=== PATIENT | female | born 1955 | race Caucasian/White ===

== ENCOUNTER → 2019-10-20 11:18 | Outpatient (REF) | payer BC, SELFPAY | LOC: ANHLAB 11:18 | PROVIDERS: PCP Internal Medicine; Visit Provider Nurse Practitioner | DX: R22.9 Localized swelling, mass and lump, unspecified (principal) | CPT/HCPCS: 88304 ==

== ENCOUNTER 2020-04-07 10:55 | Outpatient (CLI) | payer BC, SELFPAY ==
--- NOTE | ~2020-04-07 | XR_ITS ---
EXAMINATION: XR chest 2V EXAM DATE: 04/07/2020 11:19 INDICATION: R06.02 - Shortness of breath. TECHNIQUE: Frontal and lateral projections of the chest obtained and reviewed. There is no prior [place] dy for comparison. FINDINGS: The lungs are clear. There are no pleural effusions. The cardiomediastinal silhouette is within normal limits. There is no pneumothorax suspected. The bones and soft tissues are unremarkab le. There are cholecystectomy clips. There is small sliding gastroesophageal hiatal hernia. IMPRESSION: No acute cardiopulmonary findings. Reviewed, dictated and finalized at location B. 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
== END 2020-04-07 10:56 | disposition home or self-care (01) ==
PROVIDERS: PCP Internal Medicine; Visit Provider Clinical Nurse Specialist
DX: R06.02 Shortness of breath (principal)
CPT/HCPCS: 71046

== ENCOUNTER 2020-05-24 12:09 | Observation (INO) | payer BC, SELFPAY ==
[2020-05-24] VITALS (32 sets, daily range): BP systolic 101–144; BP diastolic 53–80; PULSE 60–79; RESP 12–24; TEMP 36.6–38; O2SAT 88–100; BMI 28.3
--- NOTE | ~2020-05-24 | XR_ITS ---
EXAMINATION: XR chest 1V portable INDICATION: Fever and diarrhea TECHNIQUE: Portable AP chest at 1301 hours COMPARISON: 04/07/2020 FINDINGS: There is mild atelectasis of the lung bases. The lungs are free of focal airspace opacities . There is no pleural effusion or pneumothorax. The cardiomediastinal silhouette is normal. IMPRESSION: 1. No acute cardiopulmonary abnormality. Reviewed, dictated and finalized at location A. 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
--- NOTE | ~2020-05-24 | CT_ITS ---
EXAMINATION: CT abdomen pelvis w con EXAM DATE: 05/24/2020 13:31 INDICATION: Low abdominal pain, diarrhea, symptoms since Saturday. TECHNIQUE: Spiral CT of the abdomen and pelvis was performed following intravenous injection of 100 m L Omnipaque 350. Axial, coronal and sagittal images were reviewed. The dose-length product (DLP) fo r this examination was 462.81 mGy-cm. The exposure was tailored according to patient size (auto mA e xposure control), and iterative reconstruction (ASIR) was used as additional dose reduction technique . Comparison is made to prior examination from 06/20/2019. FINDINGS: Bilateral patchy peripheral predominant groundglass opacities Appearance is typical of ear ly stage COVID 19 pneumonia. Less likely acute possibilities include influenza, pulmonary edema or h emorrhage. Some chronic processes that can have this appearance include cryptogenic organizing pneumo garcia, desquamative interstitial pneumonia, nonspecific interstitial pneumonia, drug toxicity, connecti ve tissue disease. Please clinically correlate and test as appropriate. There is hepatic steatosis without suspicious focal lesion identified. Spleen, adrenal glands, pancre as are unremarkable. There are cholecystectomy clips. Portal and splenic veins are patent. Kidneys enhance symmetrically. There is no hydronephrosis. The uterus is unremarkable. The bladder is u nremarkable. There is no retroperitoneal or pelvic lymphadenopathy. There is mild scattered arteri osclerotic disease. Congenital malrotation/nonrotation spectrum with the colon on the left side of the abdomen and small bowel on the right. The appendix is normal. There is moderate-sized gastroesophageal hiatal hernia. There is colonic fluid, correlate for diarrhea. There is moderate sigmoid predominant colonic divert iculosis. There is no adjacent inflammatory change to suggest diverticulitis. No free intraperitone al gas. The heart is normal in size. There are no pericardial or pleural effusions. There are no osteoblastic or osteolytic lesions identified. IMPRESSION: 1. Patchy bilateral airspace disease suspicious for COVID-19 pneumonia. Clinical correlation. 2. Colonic fluid, correlate for diarrhea. 3. Colonic diverticulosis. 4. Hepatic steatosis. 5. Small to moderate hiatal hernia. 6. Intestinal malrotation. I discussed suspected diarrhea, possible COVID pneumonia with Radha Logan MD at 05/24/2020 13:[address] Reviewed, dictated and finalized at location B. TECHNICIAN IMPRESSION: 1. Patchy bilateral airspace disease suspicious for COVID-19 pneumonia. Clinic al correlation. 2. Colonic fluid, correlate for diarrhea. 3. Colonic diverticulosis. 4. Hepatic steatosis. 5. Small to moderate hiatal hernia. 6. Intestinal malrotation. I discussed suspected diarrhea, possible COVID pneumonia with Radha Logan MD at 05/24/2020 13:40 TEST TECHNICIAN.
--- NOTE | 2020-05-24 12:36 | ED.GENADULT ---
HPI - General Adult General Chief complaint: Abdominal Pain Stated complaint: Vomiting,Diarrhea Time Seen by Provider: 05/24/20 12:19 Source: patient History of Present Illness HPI narrative: Patient is a 64 y/o female complaining of generalized abdominal pain. She states that she has chronic pain due to malrotation, but it's worsen since 4 days ago. She describes her pain as aching and rates it as 9/10. She states that her pain radiates to chest sometimes. She states that Bentyl helps with her pain sometimes. She also has cough, vomiting and diarrhea. Related Data Home Medications Medication Instructions Recorded Confirmed dicyclomine 10 mg capsule 10 mg PO TID cap 05/23/20 05/23/20 Allergies Allergy/AdvReac Type Severity Reaction Status Date / Time Sulfa (Sulfonamide Allergy Unknown Hives Verified 05/24/20 12:28 Antibiotics) Review of Systems Constitutional: Constitutional: Denies chills, Denies fever(s), Denies headache(s) and Denies weakness Eyes: Eyes: Denies blurry vision ENT: Denies headache(s) and Denies neck pain Cardiovascular: Cardiovascular: Reports chest pain and Reports dyspnea Respiratory: Respiratory: Reports cough and Reports dyspnea Gastrointestinal: Gastrointestinal: Reports abdominal pain, Reports diarrhea, Reports nausea and Reports vomiting Genitourinary: Genitourinary: Denies hematuria and Denies dysuria Musculoskeletal: Musculoskeletal: Denies back pain and Denies neck pain Neurologic: Denies headache(s) and Denies weakness PMFSH Past Medical History Medical History (Updated 05/24/20 @ 15:56 by Radha Logan MD) Allergies Anxiety Arthritis Bloating Depression GERD (gastroesophageal reflux disease) Headache, migraine Hiatal hernia Intestinal malrotation Irritable bowel syndrome with both constipation and diarrhea Irritable bowel syndrome with diarrhea Nodule of buttock Stroke Surgical History Surgical History H/O colonoscopy per patient H/O eye surgery x3 History of cholecystectomy History of endoscopy per patient Family History Family History Mother Diabetes mellitus Pacemaker Father Heart attack Ulcer Grandparent Diabetes mellitus Grandparent Parkinson disease Sibling Carcinoma of colon Diabetes mellitus Skin cancer Other Cerebrovascular accident Family history of cardiovascular disease Hypertension Social History Social History Smoking packs per day: 1 Smoking cigarettes per day: 20.0 Smoking status: Former smoker Smoking end date: 06/03/08 Alcohol intake: never Gender identity (if verbalized by the patient): Female Exam Const: General: no acute distress and well developed Orientation/consciousness: oriented to person, oriented to place, oriented to time and patient oriented x3 HENMT: Head: normocephalic Ears: external ears normal General nose exam: Normal external nose present Eyes: General: appearance normal, both eyes and all related structures Conjunctivae: conjunctivae normal Neck: Neck: normal visual inspection and full ROM Chest: Chest palpation & inspection: normal inspection of the chest and no tenderness Resp: Effort & Inspection: normal respiratory effort Auscultation: clear to auscultation bilaterally Cardio: Rate: regular rate Rhythm: regular rhythm GI: GI Palp: No abdominal tenderness and Yes Soft to palpation Skin: General skin exam: normal color and turgor normal Neuro: General: oriented to person, oriented to place, oriented to time and patient oriented x3 Cognition (Neuro): normal cognition Extrem: General: normal to inspection, full ROM and no pedal edema Psych: Appearance: grossly normal Mental Status: mental status grossly normal Affect: normal affect Course Reevaluation(s) Reevaluation #1: Patient's sat dropped
--- NOTE | 2020-05-24 12:39 | ECG_ITS ---
Measurements Intervals [place] Rate: 67 P: 23 MO: 129 QRS: 17 QRSD: 75 T: -7 QT: 386 QTc: 410 Interpretive Statements SINUS RHYTHM RSR' IN V1 OR V2, PROBABLY NORMAL VARIANT LOW QRS VOLTAGE IN PRECORDIAL LEADS BORDERLINE ST-T WAVE ABNORMALITY- ANT/INF LEADS BASELINE ARTIFACT- I, II, AVR, AVL, AVF, V3-V6 BORDERLINE ECG Electronically Signed On 05-24-2020 14:43:21 MEDIATION COMMISSIONER by Lucian Paul D.O.
[2020-05-24] MEDS: ACETAMINOPHEN 325 MG TABLET 650 MG PO (12:52)
[2020-05-24] MEDS: SODIUM CHLORIDE 0.9% IV 1,000 ML 999 ML IV CONT (12:53)
[2020-05-24 12:55] LABS: Basophils Percent Auto 0.4 % (0.2-1.2); Hematocrit 41.9 % (37.0-47.0); Hemoglobin 14.2 g/dL (12.0-15.0); Immature Granulocyte Absolute 0.01 K/mm3 (0.00-0.031); Immature Granulocyte Percent A 0.4 % (0-0.5); Immature Platelet Fraction Pct 5.1 % (0.9-11.2); Lymphocytes Absolute Auto 0.77 K/mm3 (0.9-3.2); Lymphocytes Percent Auto 31.4 % (18.3-44.2); Mean Corpuscular HGB Conc 33.9 g/dl (32-36); Mean Corpuscular Hemoglobin 31.8 pg (26-34); Mean Corpuscular Volume 93.9 fl (80-100); Mean Platelet Volume 11.4 fl (7.4-10.4); Monocytes Absolute Auto 0.3 K/mm3 (0.1-0.6); Monocytes Percent Auto 12.2 % (2.6-8.5); Neutrophils Absolute Auto 1.4 K/mm3 (1.3-6.7); Neutrophils Percent Auto 55.6 % (45.5-73.1); Platelet Count Result 127 k/mm3 (150-375); Red Blood Count 4.46 M/mm3 (4.2-5.4); Red Cell Distribution Width 12.3 % (11.5-14.5); White Blood Count 2.5 K/mm3 (4.5-10.0)
[2020-05-24 12:58] LABS: Add Urine Microscopic? YES; Amorphous Sediment Urine Few; Appearance Urine Cloudy (Clear); Bacteria Urine Trace /hpf; Bilirubin Urine Negative (Negative); Blood Urine 1+ (Negative); Color Urine Amber (Yellow); Glucose Urine UA Negative (Negative); Ketones Urine Negative (Negative); Leukocyte Esterase Ur 3+ LEU/UL (Negative); Mucus Urine Heavy /lpf; Nitrate Urine Negative (Negative); Protein Urine 1+ mg/dL (Negative); RBC Urine 21-50 /hpf (0-2); Specific Grav Ur 1.023 (1.001-1.035); Squamous Epithelial Cell Urine Rare /hpf (Few); Urobilinogen Urine Negative mg/dL (<2.0); WBC Urine >75 /hpf
[2020-05-24 13:08] LABS: Alanine Aminotransferase 65 U/L (4-35); Albumin Level 3.9 g/dL (3.5-5.1); Alkaline Phosphatase 89 U/L (38-126); Anion Gap 9 mmol/L (8-16); Aspartate Amino Transferase 92 U/L (14-36); Bilirubin,Total 0.6 mg/dL (0.2-1.3); Blood Urea Nitrogen 12 mg/dL (7-17); Calcium 8.6 mg/dL (8.4-10.2); Carbon Dioxide 27 mmol/L (22-30); Chloride 101 mmol/L (98-107); Estimated CRCL calculation 62 ml/min; Estimated Glomerular Filt Rate > 60; Glucose 127 mg/dL (65-105); Potassium 3.6 mmol/L (3.4-5.0); Sodium 137 mmol/L (137-145)
[2020-05-24 13:51] LABS: Troponin I < 0.012 ng/mL (0.000-0.034)
[2020-05-24] MEDS: ONDANSETRON INJ 4 MG/2 ML VIAL IV PUSH (13:52)
[2020-05-24 14:05] LABS: Lactic Acid Reflex 0.9 mmol/L (0.7-2.1)
--- NOTE | 2020-05-24 15:16 | PC.NURSE ---
Pt. O2 saturations 88% on RA with good pleth at rest. Pt. placed on 2L o2 via nasal cannula. O2 saturations at 96%. EDP aware.
[2020-05-24 16:18] LABS: Troponin I < 0.012 ng/mL (0.000-0.034)
[2020-05-24 19:17] LABS: Troponin I < 0.012 ng/mL (0.000-0.034)
[2020-05-24] MEDS: fentaNYL CITRATE INJ (*CRX) 100 MCG/2 ML VIAL 25 MCG IV PUSH (22:42)
[2020-05-24 23:30] LABS: SARS-CoV-2 RNA PCR Positive
[2020-05-25] VITALS (10 sets, daily range): BP systolic 114–141; BP diastolic 51–98; PULSE 57–68; RESP 16–20; TEMP 36.1–38.8; O2SAT 93–100
--- NOTE | 2020-05-25 11:41 | PM.IMHP ---
H&P: HPI History of Present Illness Date/Time: 05/25/20 11:41 Chief Complaint: ABDOMINAl PAIN Narrative: Rachel Wolfe is a 64 year old female has a history of reflux, diarrhea, history of malrotated lower intestine, went to see the GI doctor awaiting on a scope. Went to see SHANK TAPER also with abdominal pains was due to have CT scan of abdominal/ pelvis. Pt abdominal pain got worse came into ER for evaluation. Pt has a fever, however, no cough, or wheezy chest. No exposures from covid. Pt states her abdominal pain less sore with IV tylenol, I discussed started steroids and consulting the GI doctor with her. CXR and CT abdo and pelvis reviewed, no need for remdesvir at this time as pt does not complain of any respiratory complaints. Review of Systems Review of Systems: All systems reviewed & are unremarkable except as noted in HPI and below PMFSH Past Medical History Medical History Allergies Anxiety Arthritis Bloating Depression GERD (gastroesophageal reflux disease) Headache, migraine Hiatal hernia Intestinal malrotation Irritable bowel syndrome with both constipation and diarrhea Irritable bowel syndrome with diarrhea Nodule of buttock Stroke Surgical History Surgical History H/O colonoscopy per patient H/O eye surgery x3 History of cholecystectomy History of endoscopy per patient Family History Family History Mother Diabetes mellitus Pacemaker Father Heart attack Ulcer Grandparent Diabetes mellitus Grandparent Parkinson disease Sibling Carcinoma of colon Diabetes mellitus Skin cancer Other Cerebrovascular accident Family history of cardiovascular disease Hypertension Social History Social History Smoking packs per day: 1 Smoking cigarettes per day: 20.0 Smoking status: Never smoker Smoking end date: 06/03/08 Alcohol intake: never Substance use: never Gender identity (if verbalized by the patient): Female Spiritual care concerns: Yes (Matthew Bedoya) Meds Home Medications and Allergies Home Medications Medication Instructions Recorded Confirmed Type pantoprazole 40 mg tablet,delayed 40 mg PO QAM #90 tablet 08/27/20 12/22/20 Rx release dicyclomine 10 mg capsule 10 mg PO TID cap 05/23/20 05/24/20 History sertraline 150 mg PO HS 05/24/20 05/24/20 History triamcinolone acetonide 1 applic TOPICAL BID PRN 05/24/20 05/24/20 History zolpidem 10 mg PO HS 05/24/20 05/24/20 History Allergies Allergy/AdvReac Type Severity Reaction Status Date / Time Sulfa (Sulfonamide Allergy Unknown Hives Verified 05/24/20 12:28 Antibiotics) Vital Signs Vital Signs - 24 hr 05/24/20 12:16 05/24/20 13:22 05/24/20 13:47 Temperature 38.0 C H 37.7 C H Pulse Rate 69 70 Respiratory Rate 16 20 Blood Pressure 144/78 H Pulse Oximetry 95 91 05/24/20 14:00 05/24/20 14:01 05/24/20 14:15 Temperature Pulse Rate 70 71 71 Respiratory Rate 23 H 22 H 14 Blood Pressure 115/70 Pulse Oximetry 92 94 92 05/24/20 14:21 05/24/20 14:30 05/24/20 14:31 Temperature Pulse Rate 73 71 71 Respiratory Rate 13 17 12 Blood Pressure 109/58 L 111/53 L Pulse Oximetry 92 92 91 05/24/20 14:32 05/24/20 14:56 05/24/20 15:00 Temperature Pulse Rate 79 71 67 Respiratory Rate 20 18 12 Blood Pressure 118/60 Pulse Oximetry 91 92 91 05/24/20 15:01 05/24/20 15:15 05/24/20 15:17 Temperature Pulse Rate 67 70 Respiratory Rate 14 24 H Blood Pressure 102/61 Pulse Oximetry 92 88 L 88 L 05/24/20 15:18 05/24/20 15:19 05/24/20 15:30 Temperature Pulse Rate 72 66 72 Respiratory Rate 19 15 16 Blood Pressure 117/80 Pulse Oximetry 94 97 97 05/24/20 15:32 05/24/20 15:45 05/24/20 15:47 Temperature Pulse Rate 73 72 74
[2020-05-25] MEDS: DICYCLOMINE HCL 10 MG CAPSULE PO (16:12)
[2020-05-25] MEDS: ZOLPIDEM TARTRATE (*CRX) 5 MG TABLET 10 MG PO (21:35)
[2020-05-25] MEDS: SERTRALINE HCL 50 MG TABLET 150 MG PO (21:35)
[2020-05-25] MEDS: fentaNYL CITRATE INJ (*CRX) 100 MCG/2 ML VIAL 25 MCG IV PUSH (21:35)
[2020-05-25] MEDS: ENOXAPARIN 40 MG/0.4 ML SYRINGE SUB-Q (21:37)
[2020-05-26] VITALS: BP 130/66; PULSE 82; RESP 16; TEMP 37.4; O2SAT 96
[2020-05-26 04:00] VITALS: BP 113/56; PULSE 87; RESP 18; TEMP 36.6; O2SAT 93
[2020-05-26 08:00] VITALS: BP 108/55; PULSE 76; RESP 18; TEMP 37.7; O2SAT 94
[2020-05-26] MEDS: DEXAMETHASONE SOD PHOS INJ 4 MG/ML VIAL 6 MG IV PUSH (08:43)
[2020-05-26] MEDS: ENOXAPARIN 40 MG/0.4 ML SYRINGE SUB-Q ×2 (08:44→20:18)
[2020-05-26] MEDS: DICYCLOMINE HCL 10 MG CAPSULE PO ×3 (08:44→17:31)
[2020-05-26] MEDS: PANTOPRAZOLE 40 MG TABLET PO (08:44)
[2020-05-26 09:07] LABS: Hematocrit 37.9 % (37.0-47.0); Hemoglobin 12.8 g/dL (12.0-15.0); Immature Granulocyte Absolute 0.02 K/mm3 (0.00-0.031); Immature Granulocyte Percent A 0.9 % (0-0.5); Lymphocytes Absolute Auto 0.65 K/mm3 (0.9-3.2); Mean Corpuscular HGB Conc 33.8 g/dl (32-36); Mean Corpuscular Hemoglobin 31.8 pg (26-34); Mean Platelet Volume 11.5 fl (7.4-10.4); Monocytes Absolute Auto 0.2 K/mm3 (0.1-0.6); Monocytes Percent Auto 9.5 % (2.6-8.5); Neutrophils Absolute Auto 1.4 K/mm3 (1.3-6.7); Neutrophils Percent Auto 61.6 % (45.5-73.1); Platelet Count Result 139 k/mm3 (150-375); Red Blood Count 4.03 M/mm3 (4.2-5.4); Red Cell Distribution Width 12.4 % (11.5-14.5); White Blood Count 2.3 K/mm3 (4.5-10.0)
[2020-05-26 09:29] LABS: Alanine Aminotransferase 46 U/L (4-35); Albumin Level 3.4 g/dL (3.5-5.1); Alkaline Phosphatase 73 U/L (38-126); Anion Gap 8 mmol/L (8-16); Aspartate Amino Transferase 85 U/L (14-36); Bilirubin,Total 0.4 mg/dL (0.2-1.3); Blood Urea Nitrogen 13 mg/dL (7-17); Calcium 8.3 mg/dL (8.4-10.2); Carbon Dioxide 27 mmol/L (22-30); Chloride 104 mmol/L (98-107); Estimated CRCL calculation 71 ml/min; Estimated Glomerular Filt Rate > 60; Glucose 126 mg/dL (65-105); Potassium 3.5 mmol/L (3.4-5.0); Sodium 139 mmol/L (137-145)
[2020-05-26 12:00] VITALS: BP 114/58; PULSE 60; RESP 16; TEMP 36.2; O2SAT 92
--- NOTE | 2020-05-26 13:43 | PM.IMPN ---
Progress Note: A&P Assessment and Plan (1) Abdominal pain, vomiting, and diarrhea: Code(s): R10.9 - Unspecified abdominal pain; R11.10 - Vomiting, unspecified; R19.7 - Diarrhea, unspecified Status: Acute Assessment and Plan: PT started on iv tylenol I will consult GI as pt has history of GERD and interstinal malrotation 05/26/20 13:43 Patient is 64-year-old female with a history of lower intestine malrotation patient had a persistent abdominal pain and diarrhea patient presented emergency department for further evaluation upon arrival patient had a fever of 100.[address] scan the abdomen was done did not show significant abdominal pathology however lower lung lower bases suggestive of COVID pneumonia patient was tested and positive, currently patient states the pain is better with IV Tylenol, she feels more tired and fatigued , had a fever last night again, patient was started on dexamethasone, clinically stable will continue to monitor will have a PT OT evaluate the patient and further recommendation to follow (2) Intestinal malrotation: 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 Assessment and Plan: Seen on CT scan of abdomen and pelvis (3) GERD (gastroesophageal reflux disease): Qualifiers: Esophagitis presence: esophagitis presence not specified Qualified Code(s): K21.9 - Gastro-esophageal reflux disease without esophagitis Code(s): K21.9 - Gastro-esophageal reflux disease without esophagitis Status: Chronic Assessment and Plan: Start PPI (4) UTI (urinary tract infection): Code(s): N39.0 - Urinary tract infection, site not specified Status: Acute Assessment and Plan: Start oral ABX awaiting UC and sensitivites (5) COVID-19: Code(s): U07.1 - COVID-19 Status: Acute Assessment and Plan: Positive test with patchy findings on CT abdomen IV steroids started watch oxygen levels Subjective Date/time seen: 05/26/20 13:43 Patient is 64-year-old female with a history of lower intestine malrotation patient had a persistent abdominal pain and diarrhea patient presented emergency department for further evaluation upon arrival patient had a fever of 100.[address] scan the abdomen was done did not show significant abdominal pathology however lower lung lower bases suggestive of COVID pneumonia patient was tested and positive, currently patient states the pain is better with IV Tylenol, she feels more tired and fatigued , had a fever last night again, patient was started on dexamethasone, clinically stable will continue to monitor will have a PT OT evaluate the patient and further recommendation to follow Urine culture is growing mixed varun, blood culture so far no growth Review of Systems Review of Systems: All systems reviewed & are unremarkable except as noted in HPI and below Exam Narrative: Exam Narrative: Patient is comfortable, NAD HEENT: eyes are clear and none icteric LUNGS: Normal respiratory effort ABD: Not distant Lower extremities: no edema SKIN: nonjaundiced Neuro: grossly intact normal speech. Objective Data Vital Signs Vital Signs: Vital Signs - 24 hr 05/25/20 16:00 05/25/20 20:00 05/26/20 00:00 Temperature 97.7 F 96.9 F L 99.3 F Pulse Rate 62 64 82 Respiratory Rate 20 16 16 Blood Pressure 119/51 L 141/98 H 130/66 Pulse Oximetry 98 96 96 05/26/20 04:00 05/26/20 08:00 05/26/20 12:00 Temperature 98 F 99.8 F H 97.1 F L Pulse Rate 87 76 60 Respiratory Rate 18 18 16 Blood Pressure 113/56 L 108/55 L 114/58 L Pulse Oximetry 93 94 92 Intake/Output Intake/Output: Intake & Output 05/23/20 05/24/20 05/25/20 05/26/20 23:59 23:59 23:59 23:59 Intake Total 1100 1760 225 Output Total 1100 Balance 1100 660 225 Meds/Results Medications: Active Medications Generic Name Dose Route Start Last Admin Trade Name Freq
[2020-05-26 16:00] VITALS: BP 104/55; PULSE 61; RESP 16; TEMP 36.1; O2SAT 95
[2020-05-26 19:59] VITALS: BP 116/46; PULSE 61; RESP 18; TEMP 37.1; O2SAT 95
[2020-05-26] MEDS: SERTRALINE HCL 50 MG TABLET 150 MG PO (20:18)
[2020-05-26] MEDS: ZOLPIDEM TARTRATE (*CRX) 5 MG TABLET 10 MG PO (20:18)
[2020-05-27] VITALS: BP 123/95; PULSE 68; RESP 18; TEMP 36.8; O2SAT 90
[2020-05-27 04:00] VITALS: BP 118/43; PULSE 67; RESP 18; TEMP 36.8; O2SAT 92
[2020-05-27 06:41] LABS: Basophils Percent Auto 0.3 % (0.2-1.2); Hematocrit 38.2 % (37.0-47.0); Hemoglobin 12.6 g/dL (12.0-15.0); Immature Granulocyte Absolute 0.01 K/mm3 (0.00-0.031); Immature Granulocyte Percent A 0.3 % (0-0.5); Lymphocytes Absolute Auto 1.08 K/mm3 (0.9-3.2); Lymphocytes Percent Auto 33.8 % (18.3-44.2); Mean Corpuscular Volume 94.1 fl (80-100); Mean Platelet Volume 11.7 fl (7.4-10.4); Monocytes Absolute Auto 0.3 K/mm3 (0.1-0.6); Monocytes Percent Auto 9.4 % (2.6-8.5); Neutrophils Absolute Auto 1.8 K/mm3 (1.3-6.7); Neutrophils Percent Auto 56.2 % (45.5-73.1); Platelet Count Result 138 k/mm3 (150-375); Red Blood Count 4.06 M/mm3 (4.2-5.4); Red Cell Distribution Width 12.1 % (11.5-14.5); White Blood Count 3.2 K/mm3 (4.5-10.0)
[2020-05-27 06:53] LABS: Alanine Aminotransferase 49 U/L (4-35); Albumin Level 3.3 g/dL (3.5-5.1); Alkaline Phosphatase 69 U/L (38-126); Anion Gap 6 mmol/L (8-16); Aspartate Amino Transferase 100 U/L (14-36); Bilirubin,Total 0.5 mg/dL (0.2-1.3); Blood Urea Nitrogen 14 mg/dL (7-17); Calcium 8.5 mg/dL (8.4-10.2); Carbon Dioxide 27 mmol/L (22-30); Chloride 106 mmol/L (98-107); Estimated CRCL calculation 84 ml/min; Estimated Glomerular Filt Rate > 60; Glucose 102 mg/dL (65-105); Potassium 3.3 mmol/L (3.4-5.0); Sodium 139 mmol/L (137-145)
[2020-05-27 08:00] VITALS: BP 105/51; PULSE 60; RESP 18; TEMP 36.9; O2SAT 93
[2020-05-27] MEDS: DEXAMETHASONE SOD PHOS INJ 4 MG/ML VIAL 6 MG IV PUSH (08:43)
[2020-05-27] MEDS: PANTOPRAZOLE 40 MG TABLET PO (08:43)
[2020-05-27] MEDS: ENOXAPARIN 40 MG/0.4 ML SYRINGE SUB-Q (08:43)
[2020-05-27] MEDS: DICYCLOMINE HCL 10 MG CAPSULE PO ×2 (08:43→12:17)
[2020-05-27] MEDS: POTASSIUM CHLORIDE 20 MEQ PACKET (FOR LIQUID) 40 MEQ PO (10:16)
[2020-05-27 12:00] VITALS: BP 104/63; PULSE 70; RESP 18; TEMP 36.7; O2SAT 91
--- NOTE | 2020-05-27 12:44 | PM.DS ---
DS: Admitting Diagnosis Admitting Diagnosis Admitting Diagnosis: Abdominal pain DS: Discharge Diagnosis Discharge Diagnosis (1) Abdominal pain, vomiting, and diarrhea: Code(s): R10.9 - Unspecified abdominal pain; R11.10 - Vomiting, unspecified; R19.7 - Diarrhea, unspecified Status: Acute Assessment and Plan: PT started on iv tylenol I will consult GI as pt has history of GERD and interstinal malrotation 05/26/20 13:43 Patient is 64-year-old female with a history of lower intestine malrotation patient had a persistent abdominal pain and diarrhea patient presented emergency department for further evaluation upon arrival patient had a fever of 100.[address] scan the abdomen was done did not show significant abdominal pathology however lower lung lower bases suggestive of COVID pneumonia patient was tested and positive, currently patient states the pain is better with IV Tylenol, she feels more tired and fatigued , had a fever last night again, patient was started on dexamethasone, clinically stable will continue to monitor will have a PT OT evaluate the patient and further recommendation to follow (2) Intestinal malrotation: 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 Assessment and Plan: Seen on CT scan of abdomen and pelvis (3) GERD (gastroesophageal reflux disease): Qualifiers: Esophagitis presence: esophagitis presence not specified Qualified Code(s): K21.9 - Gastro-esophageal reflux disease without esophagitis Code(s): K21.9 - Gastro-esophageal reflux disease without esophagitis Status: Chronic Assessment and Plan: Start PPI (4) UTI (urinary tract infection): Code(s): N39.0 - Urinary tract infection, site not specified Status: Acute Assessment and Plan: Start oral ABX awaiting UC and sensitivites (5) COVID-19: Code(s): U07.1 - COVID-19 Status: Acute Assessment and Plan: Positive test with patchy findings on CT abdomen IV steroids started watch oxygen levels DS: Summary Hospital Course Reason for hospitalization: Chief Complaint: ABDOMINAl PAIN Narrative: Rachel Wolfe is a 64 year old female has a history of reflux, diarrhea, history of malrotated lower intestine, went to see the GI doctor awaiting on a scope. 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 Pt abdominal pain got worse came into ER for evaluation. Pt has a fever, however, no cough, or wheezy chest. No exposures from covid. Pt states her abdominal pain less sore with IV tylenol, I discussed started steroids and consulting the GI doctor with her. CXR and CT abdo and pelvis reviewed, no need for remdesvir at this time as pt does not complain of any respiratory complaints. Hospital Course: Patient is 64-year-old female with a history of lower intestine malrotation patient had a persistent abdominal pain and diarrhea patient presented emergency department for further evaluation upon arrival patient had a fever of 100.[address] scan the abdomen was done did not show significant abdominal pathology however lower lung lower bases suggestive of COVID pneumonia patient was tested and positive, currently patient states the pain is better with IV Tylenol, she feels more tired and fatigued , had a fever last night again, patient was started on dexamethasone, clinically stable will continue to monitor will have a PT OT evaluate the patient and further recommendation to follow, patient remains clinically stable will discharge the patient today Status at Discharge Functional status at discharge: independent ambulation Overall status at discharge: patient is back to baseline Time Spent with Patient Time attestation: Total time spent providing and/or coordinating discharge services: Patient was seen and examined at the time of the discharge Condition at discharge is stable
== END 2020-05-27 14:20 | disposition home or self-care (01) ==
LOC: ANHED 15:56 → ANH3MEDSUR 16:48
PROVIDERS: Admitting Provider Family Medicine; Emergency Provider Emergency Medicine; PCP Internal Medicine; Visit Provider Family Medicine
DX: R10.9 Unspecified abdominal pain (principal); R11.2 Nausea with vomiting, unspecified; R19.7 Diarrhea, unspecified; Q43.3 Congenital malformations of intestinal fixation; K21.9 Gastro-esophageal reflux disease without esophagitis; N39.0 Urinary tract infection, site not specified; U07.1 COVID-19; K58.2 Mixed irritable bowel syndrome; K44.9 Diaphragmatic hernia without obstruction or gangrene; F41.8 Other specified anxiety disorders; Z87.891 Personal history of nicotine dependence; J96.01 Acute respiratory failure with hypoxia
CPT/HCPCS: 36415; 71045; 74177; 80053; 81001; 83605; 84484; 85025; 85055; 87040; 87086; 87088; 87635; 93005; 96361; 96365; 96366; 96372; 96374; 96375; 96376; 99291; A9270; C9803; G0378; J0131; J1100; J1650; J2405; J3010; J7030; Q9967; U0003

== ENCOUNTER 2020-11-18 09:10 | Outpatient (CLI) | payer MEDICARE, SELFPAY ==
--- NOTE | ~2020-11-18 | XR_ITS ---
SMALL BOWEL SERIES ONLY INDICATION: Bowel malrotation TECHNIQUE: Serial plain films and fluoroscopic spot films are performed following oral demonstration of thin barium. COMPARISON: CT dated 05/24/2020 FINDINGS: Barium was followed sequentially through the small bowel. The mucosal pattern is unremarka ble. There is malrotation of the bowel with the majority of the small bowel on the right side of the abdomen with the ileocecal valve at the left lower abdomen. No small bowel masses or obstruction of f low of contrast. No evidence for stricture, polyp, diverticula or obstruction of flow of contrast. T ransit time is normal. There are cholecystectomy clips. 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 Reviewed, dictated and finalized at location A. 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
== END 2020-11-18 09:11 | disposition home or self-care (01) ==
LOC: ANHIMG 09:16
PROVIDERS: PCP Internal Medicine; Visit Provider Internal Medicine Gastroenterology
DX: Q43.3 Congenital malformations of intestinal fixation (principal)
CPT/HCPCS: 74250

== ENCOUNTER → 2021-12-11 11:10 | Outpatient (CLI) | payer MEDICARE, SELFPAY ==
--- NOTE | ~2021-12-11 | MM_ITS ---
EXAMINATION: MM screening [facility] BI w jhonatan HISTORY: Screening mammogram TECHNIQUE: Craniocaudal and mediolateral oblique 3-D tomosynthesis images were obtained and synthetic 2-D images were generated. CAD analysis was submitted and interpreted. COMPARISON: None, baseline BREAST PARENCHYMAL COMPOSITION: There are scattered areas of fibroglandular density. FINDINGS: RIGHT BREAST: There is no suspicious mass, calcification, or architectural distortion to suggest josue gnancy. LEFT BREAST: Focal asymmetry is present in the middle third of the slightly upper breast. IMPRESSION: 1. Left breast focal asymmetry 2. Additional mammographic views and possible breast ultrasound are recommended. BI-RADS Category 0: Incomplete: Needs additional imaging evaluation. Reviewed, dictated and finalized at location A. IMPRESSION: 1. Left breast focal asymmetry 2. Additional mammographic views and possible breast ultrasound are recommended . BI-RADS Category 0: Incomplete: Needs additional imaging evaluation.
--- NOTE | ~2021-12-11 | DEXA_ITS ---
Bone Density Report Name: OSMIN MACIAS Age: 66 Sex: Female Ethnicity: White Date of : 1955 Indication: postmenopausal; screening for osteoporosis; height loss; Referring Provider: Stevie, Aminah Study: Bone densitometry was performed. Exam Date: December 11, 2021 Accession number: [id number] Bone Density: Region BMD T-score Z-score Classification AP Spine (L1-L4) 0.778 -2.4 -0.6 Osteopenia Femoral Neck (Left) 0.522 -2.9 -1.4 Osteoporosis Total Hip (Left) 0.658 -2.3 -1.0 Osteopenia Femoral Neck (Right) 0.549 -2.7 -1.1 Osteoporosis Total Hip (Right) 0.647 -2.4 -1.1 Osteopenia Total Hip Mean 0.653 -2.4 -1.1 Osteopenia World Health Organization criteria for BMD impression classify patients as: Normal (T-score at or above -1.0), Osteopenia (T-score between -1.0 and -2.5), or Osteoporosis (T-score at or below -2.5). 10-year Fracture Risk: FRAX not reported because: Some T-score for Spine Total or Hip Total or Femoral Neck at or below -2.5 Clinical Information Provided by Patient: Patient maximum height was 62 Menopause Age: 39 Drinks caffeinated beverages Onset of menses at age 14 Number of children 1 Impression: The patient has osteoporosis, based on the Left Femoral Neck T-score. Discussion: INCREASED RISK OF FRACTURE. BONE DENSITY IS UNDESIRABLY LOW AT ONE OR MORE SKELETAL SITES, CONSISTENT WITH POSTMENOPAUSAL OSTEOPOROSIS. This patient's lowest T-score meets the World Health Organization's (WHO) criteria for osteoporosis at one or more sites (T-score -2.5 or below). In untreated patients, the risk of osteoporotic fracture increases approximately two-fold for each 1.0 SD decrease in T-score. Low bone density is not the only risk factor for fracture; also consider factors such as patient's age, frailty or poor health, risk of falling, risk of injury, previous osteoporotic fracture, family history of osteoporosis, cigarette smoking, low body weight, etc. Not everyone with low bone mineral density has osteoporosis; osteomalacia and other metabolic bone disorders should also be considered. Patients who have osteoporosis should be evaluated for specific diseases and conditions (secondary causes) that may cause or contribute to bone loss. The [place] Association of Clinical Endocrinologists (AACE) and National Osteoporosis Foundation (NOF) recommend pharmacologic intervention for all postmenopausal women whose T-score is in this range. The patient should follow a healthful lifestyle (good nutrition with adequate calcium and vitamin D, and appropriate weight-bearing exercise). Follow-Up: Consider a repeat BMD and Vertebral Fracture Assessment (VFA) exam in 2 years or sooner if medically necessary, to reassess this patient's status. Reported by: [facility] on 12/11/2021 11:48:00 AM.
== END ==
PROVIDERS: PCP Internal Medicine; Visit Provider Internal Medicine
DX: Z12.31 Encounter for screening mammogram for malignant neoplasm of breast (principal); Z78.0 Asymptomatic menopausal state; R92.8 Other abnormal and inconclusive findings on diagnostic imaging of breast; M85.88 Other specified disorders of bone density and structure, other site; M81.0 Age-related osteoporosis without current pathological fracture; M85.852 Other specified disorders of bone density and structure, left thigh; M85.851 Other specified disorders of bone density and structure, right thigh
CPT/HCPCS: 77063; 77067; 77080

== ENCOUNTER → 2021-12-27 10:02 | Outpatient (CLI) | payer MEDICARE, SELFPAY ==
--- NOTE | ~2021-12-27 | MMUS_ITS ---
EXAMINATION: MM diagnostic ignacio LT w jhonatan, US breast LT limited HISTORY: Focal left breast asymmetry reported in middle third of slightly upper breast on 12/11/2021 s creening mammogram TECHNIQUE: Full field ML and spot ML, MLO and CC 3-D tomosynthesis images of the left breast were per formed and synthetic 2-D images were generated. CAD analysis was submitted and interpreted. High reso lution upper inner and upper outer quadrant left breast ultrasound was performed. COMPARISON: 12/11/2021 bilateral screening mammogram FINDINGS: MAMMOGRAPHIC FINDINGS: No suspicious mass, architectural distortion, malignant calcification, skin thickening or retraction is detected. ULTRASOUND: No suspicious mass or shadowing is detected. IMPRESSION: 1. No mammographic evidence of malignancy 2. Routine annual mammographic screening is recommended. BI-RADS Category 2: Benign finding(s). Reviewed, dictated and finalized at location A. IMPRESSION: 1. No mammographic evidence of malignancy 2. Routine annual mammographic screening is recommended. BI-RADS Category 2: Benign finding(s).
== END ==
PROVIDERS: PCP Internal Medicine; Visit Provider Internal Medicine
DX: R92.8 Other abnormal and inconclusive findings on diagnostic imaging of breast (principal)
CPT/HCPCS: 76642; 77061; 77065; G0279

== ENCOUNTER 2022-05-21 15:25 | Outpatient (CLI) | payer MEDICARE, SELFPAY ==
--- NOTE | ~2022-05-21 | MR_ITS ---
MRI of the lumbar spine Clinical History: Back pain, left sciatica Technique: Axial T2-weighted images, and sagittal T1-weighted, T2-weighted, and T2 fat-sat images wer e acquired. Findings: There is no fracture or subluxation of the lumbar spine. Vertebral bodies maintain normal h eight and alignment. No suspicious bone marrow signal abnormality seen. At L1-L2, there is no significant disc bulge or herniation. There is mild facet joint arthropathy. No spinal canal stenosis or neural foraminal narrowing. At L2-L3, there is a left paracentral disc extrusion extending just behind the L2 vertebral body, and minimally compressing the ventral thecal sac. There may be impingement of the descending left-sided L3-L4 nerve root. Neural foramen at this level are preserved. At L3-L4, there is mild left foraminal disc bulge. There is facet joint arthropathy. No spinal canal stenosis or definite neural foraminal narrowing. At L4-L5, there is mild disc bulge with facet arthropathy. There is minimal central canal stenosis. M oderate right neural foraminal narrowing present. Left neural foramen but are preserved. At L5-S1, there is no disc bulge or herniation. There is facet joint arthropathy. There is mild to mo derate right neural foraminal narrowing. Left neural foramen preserved. No spinal canal stenosis. Paravertebral soft tissues are unremarkable. Impression: Small left paracentral disc extrusion at L2-L3, which may impinge the descending left-sided L3-L4 lev el nerve root. Minimal central canal stenosis at L4-L5 with moderate right neural foraminal narrowing. Mild to moderate right neural foraminal narrowing at L5-S1. Reviewed, dictated and finalized at location M. R DRIVEN BRUSH MAKER Impression: Small left paracentral disc extrusion at L2-L3, which may impinge the descendin g left-sided L3-L4 level nerve root. Minimal central canal stenosis at L4-L5 with moderate right neural foraminal na rrowing. Mild to moderate right neural foraminal narrowing at L5-S1.
== END 2022-05-21 15:26 | disposition home or self-care (01) ==
PROVIDERS: PCP Internal Medicine; Visit Provider Internal Medicine
DX: M54.42 Lumbago with sciatica, left side (principal); M50.20 Other cervical disc displacement, unspecified cervical region
CPT/HCPCS: 72148

== ENCOUNTER 2024-01-06 15:56 | Emergency (ER) | payer MEDICARE, SELFPAY ==
--- NOTE | ~2024-01-06 | XR_ITS ---
EXAM: XR sternum min 2V DATE: 01/06/2024 17:09 HISTORY: pop 3 days ago. persistent pain MID STERNAL . COMPARISON: None available. FINDINGS: Decreased mineralization. Transverse fracture of the sternal body with 3 mm anterior displ acement of the distal fragment. No lytic or blastic lesion. Sternoclavicular joints appear grossly no rmal. No erosion or periosteal change. Degenerative change in the thoracic spine. IMPRESSION: Osteopenia. Minimally displaced transverse fracture of the sternal body. Reviewed, dictated and finalized at location K.
[2024-01-06 16:12] VITALS: BP 134/76; PULSE 62; RESP 16; O2SAT 98
[2024-01-06 16:31] VITALS: TEMP 36.7
--- NOTE | 2024-01-06 16:54 | ED.GENADULT ---
HPI - General Adult General Chief complaint: Unspecified Stated complaint: pain,pop on breast bone Time Seen by Provider: 01/06/24 16:41 Source: patient and RN notes reviewed Mode of arrival: ambulatory Limitations: no limitations History of Present Illness HPI narrative: Patient presents today complaining of pain to the sternum. Three days ago she was trying to scoot herself into a friend's pool with her arms and felt a pop in her sternum. She has been having pain to the sternum ever since. This pain increases with movement and coughing. Currently rates her pain 8/10 and has tried no [id number]-rfg-[id number] treatment prior to arrival. Related Data Home Medications Medication Instructions Recorded Confirmed brimonidine 0.2 % eye drops 1 drp DIRECTED 01/06/24 01/06/24 latanoprost 0.005 % eye drops 1 drp DIRECTED 01/06/24 01/06/24 timolol maleate 0.5 % eye drops 1 drp DIRECTED 01/06/24 01/06/24 Allergies Allergy/AdvReac Type Severity Reaction Status Date / Time Sulfa (Sulfonamide Allergy Unknown Hives Verified 11/23/20 15:40 Antibiotics) Review of Systems Review of Systems: CONSTITUTIONAL: Denies body aches, fever, chills, or sweats. EYES: Denies visual changes, redness, or discharge. ENT: Denies rhinorrhea, congestion, sore throat, or otalgia. CARDIOVASCULAR: Denies chest pain, palpitations, or edema. RESPIRATORY: Denies cough or dyspnea. GASTROINTESTINAL: Denies abdominal pain, nausea, vomiting, or diarrhea. GENITOURINARY: Denies dysuria or hematuria. SKIN: Denies rash, itching, or wounds. MUSCULOSKELETAL: Denies back pain, joint pain, or myalgia.+ sternal pain NEUROLOGIC: Denies headache, numbness, tingling, or weakness. PSYCH: Denies depression or anxiety. [facility] Past Medical History Medical History (Updated 01/06/24 @ 17:30 by Noemi Underwood, LANE ATTENDANT, ) Allergies Anxiety Arthritis Bloating Depression GERD (gastroesophageal reflux disease) Headache, migraine Hiatal hernia Intestinal malrotation Irritable bowel syndrome with both constipation and diarrhea Irritable bowel syndrome with diarrhea Nodule of buttock Stroke Surgical History Surgical History H/O colonoscopy per patient H/O eye surgery x3 History of cholecystectomy History of endoscopy per patient Family History Family History Mother Diabetes mellitus Pacemaker Father Heart attack Ulcer Grandparent Diabetes mellitus Grandparent Parkinson disease Sibling Carcinoma of colon Diabetes mellitus Skin cancer Other Cerebrovascular accident Family history of cardiovascular disease Hypertension Social History Social History Smoking packs per day: 1 Smoking cigarettes per day: 20.0 Smoking status: Never smoker Smoking end date: 06/03/08 Alcohol intake: never Substance use: never Gender identity (if verbalized by the patient): Female Spiritual care concerns: Yes (Matthew Bedoya) Comments At time of signature, I have reviewed and agree with nursing past medical, surgical, social and family history unless otherwise noted. Please see nursing chart for further information. There is no relevant family history pertinent to the presenting complaint Exam Narrative: GENERAL: Well-appearing, well-nourished, and in no acute distress. HEAD: Normocephalic, atraumatic. EYES: EOMI. No redness or drainage. Conjunctivae normal. ENT: Mucous membranes pink and moist. NECK: Normal AROM. CHEST: No respiratory distress. Clear to auscultation. HEART: Regular rate and rhythm. No murmur appreciated. Normal peripheral pulses. MUSCULOSKELETAL: Tenderness to the sternum. No edema, crepitus, or stepoff noted. EXTREMITIES: Normal range of motion. No edema. SKIN: Warm, dry, no rash. Capillary refill normal. Normal skin
== END 2024-01-06 17:38 | disposition home or self-care (01) ==
PROVIDERS: Emergency Provider Nurse Practitioner; PCP Internal Medicine
DX: S22.22XA Fracture of body of sternum, initial encounter for closed fracture (principal); X50.9XXA Other and unspecified overexertion or strenuous movements or postures, initial encounter; M19.90 Unspecified osteoarthritis, unspecified site; K21.9 Gastro-esophageal reflux disease without esophagitis; Z86.73 Personal history of transient ischemic attack (TIA), and cerebral infarction without residual deficits
CPT/HCPCS: 71120; 99213; G0463

== ENCOUNTER 2024-09-17 10:12 | Outpatient (CLI) | payer MEDICARE, SELFPAY ==
--- NOTE | ~2024-09-17 | MM_ITS ---
EXAMINATION: MM screening ignacio BI w jhonatan HISTORY: Screening TECHNIQUE: Craniocaudal and mediolateral oblique 3-D tomosynthesis images were obtained and synthetic 2-D images were generated. CAD analysis was submitted and interpreted. COMPARISON: 12/11/2021 BREAST PARENCHYMAL COMPOSITION: Not dense: There are scattered areas of fibroglandular density. FINDINGS: There is no evidence of suspicious mass, calcification, or architectural distortion to sugg est malignancy in either breast. There has been no suspicious interval change. IMPRESSION: 1. No mammographic evidence of malignancy. 2. Recommend routine screening mammography in one year. BI-RADS Category 1: Negative Reviewed, dictated and finalized at location B.
--- OUTSIDE RECORDS SUMMARY | 2024-09-17 10:51 | XMS_ITS | Encounter Summary ---
Author Organization [facility] Address [address] [place] [address] Care Team Providers Care Domain Architect Name Role Phone Aminah Hubbard MD Primary Care Provider Ramon Miller MD Unavailable [phone] Je Sellers MD Unavailable Elma Vila MD Unavailable [phone] Encounter Details Date Type Department Care Team (Latest Contact Info) Description 11/13/2022 Syndero Message Enc [facility] Multispecialty Care - [facility] [address] [facility], [address] [place] [address] Jocelyn Chawla APRN [address] [facility] [address] [place] [address] 6 Months to appointment Social History Tobacco Use Types Packs/Day Years Used Date Smoking Tobacco: Former Cigarettes 1 30 1 977 - 2007 Smokeless Tobacco: Never Comments:counseled by Dr Frannie klein Alcohol Use Standard Drinks/Week Comments Yes 0 (1 standard drink = 0.6 oz pur e alcohol) 2-3 per year PHQ-2 Answer Date Recorded Patient Health Questionnaire-2 Score 1 10/12/2022 Comments No Sex and Gender Information Value Date Recorded Sex Assigned at Not on file Legal Sex Female 3:06 PM CDT Gender Identity Not on file Sexual Orientation Not on file COVID-19 Exposure Response Date Recorded In the last 10 days, have yo u been in contact with someone who was confirmed or suspected to have Coronavirus/COVID-19? No / Unsure 11/13/2022 10:49 AM CDT documented as of this encounter Plan of Treatment Upcoming Encounters Date Type Department Care Team (Late st Contact Info) Description 10/09/2024 10:00 AM CDT [facility] [address] [place] [address] Aminah Hubbard MD [address] [place] [address] 04/21/2025 10:30 AM SAFETY COORDINATOR [facility] [address] [place] [address] Aminah Hubbard MD [address] [place] [address] documented as of this encounter Visit Diagnoses Not on filedocumented in this encounter Additional Health Concerns Assessment Noted Time PHQ-9 Depression Total Score: 4 11/23/19 22 1:25 PM CDT documented as of this encounter Care Teams Domain Architect Relationship Specialty Start Date End Date Aminah Hubbard MD [address] [place] [address] PCP - General INTERNAL MEDICINE 08/28/21 Ramon Miller MD [address] [facility] [address] [place] [address] [place] [address] GASTROENTEROLOGY 11/22/21 02/12/23 Je Sellers MD [address] [facility] [address] [place] [address] Referring Physician OPHTHALMOLOGY 11/22/21 Elma Vila MD [facility] [address] [facility] [place] [address] Consulting Physician ANESTHESIOLOGY PAIN MEDICINE 04/08/24 04/08/24 documented as of this encounter
--- OUTSIDE RECORDS SUMMARY | 2024-09-17 10:51 | XMS_ITS | Encounter Summary ---
Author Organization [facility] - [facility] Address [address] [place] [address] Care Team Providers Care Vice President Of Business Development Name Role Phone Aminah Hubbard MD Primary Care Provider [phone] Je Sellers MD Unavailable Elma Vila MD Unavailable Encounter Details Date Type Department Care Team (Late st Contact Info) Description 02/15/2023 coUrbanize Message Enc [facility] Medical [facility] Multispecialty Care - [address] [place] [address] dotSyntax, [facility] Provider lab results Social History Tobacco Use Types Packs/Day Years Used Date Smoking Tobacco: Former Cigarettes 1 30 1 977 - 2006 Smokeless Tobacco: Never Comments:counseled by Dr Frannie klein Alcohol Use Standard Drinks/Week Comments Yes 0 (1 standard drink = 0.6 oz pur e alcohol) 2-3 per year AUDIT-C Answer Date Recorded Q1: How often do you have a drink containing alcohol? Never 02/13/2023 Q2: How many drinks containi ng alcohol do you have on a typical day when you are drinking? Patient does not drink Q3: How often do you have si x or more drinks on one occasion? Never 02/13/2023 PHQ-2 Answer Date Recorded Patient Health Questionnaire-2 Score 2 02/13/2023 Comments No Sex and Gender Information Value Date Recorded Sex Assigned at Not on file Legal Sex Female 3:06 PM CDT Gender Identity Not on file Sexual Orientation Not on file documented as of this encounter Plan of Treatment Upcoming Encounters Date Type Department Care Team (Late st Contact Info) Description 10/09/2024 10:00 AM CDT Office Visit [facility] Multispecialty Care - [address] [place] [address] [place] [address] [place] [address] 04/21/2025 10:30 AM DIGITAL SERVICE ENGINEER [facility] [address] [place] [address] Aminah Hubbard MD [facility] [address] documented as of this encounter Visit Diagnoses Not on filedocumented in this encounter Additional Health Concerns Assessment Noted Time PHQ-9 Depression Total Score: 4 11/23/19 22 1:25 PM CDT documented as of this encounter Care Teams Vice President Of Business Development Relationship Specialty Start Date End Date Aminah Hubbard MD [address] [place] [address] PCP - General INTERNAL MEDICINE 08/28/21 Je Sellers MD [address] [place] [address] [address] Referring Physician OPHTHALMOLOGY 11/22/21 Elma Vila MD [facility] [address] [place] [address] Consulting Physician ANESTHESIOLOGY PAIN MEDICINE 04/08/24 04/08/24 documented as of this encounter
--- OUTSIDE RECORDS SUMMARY | 2024-09-17 10:51 | XMS_ITS | Encounter Summary ---
Author Organization [facility] Address [address] [place] [address] Care Team Providers Care Wood Heel Flap Trimmer Name Role Phone Aminah Hubbard MD Primary Care Provider [phone] Je Sellers MD Unavailable Elma Vila MD Unavailable [phone] Encounter Details Date Type Department Care Team (Late st Contact Info) Description 04/03/2023 Pre-Procedure Call [facility] [place] [address] [phone] Emely Li, DIANA Social History Tobacco Use Types Packs/Day Years Used Date Smoking Tobacco: Former Cigarettes 1 30 977 - 2006 Smokeless Tobacco: Never Comments:counseled [...] Description 10/09/2024 10:00 AM CDT Office Visit [facility] - [address] [place] [address] [place] [address] [place] [address] 04/21/2025 10:30 AM TUBE CLEANER [facility] - [address] [place] [address] Aminah Hubbard MD [address] [place] [address] documented as of this encounter Visit Diagnoses Not on filedocumented in this encounter Additional Health Concerns Assessment Noted Time PHQ-9 Depression Total Score: 4 11/23/19 22 1:25 PM CDT documented as of this encounter Care Teams Wood Heel Flap Trimmer Relationship Specialty Start Date End Date Aminah Hubbard MD [address] [place] [address] PCP - General INTERNAL MEDICINE 08/28/21 Je Sellers MD [address] [place] [address] [address] [place] [address] Referring Physician OPHTHALMOLOGY 11/22/[address] [facility] [address] [place] [address] Consulting Physician ANESTHESIOLOGY PAIN MEDICINE 04/08/24 04/08/24 documented as of this encounter
--- OUTSIDE RECORDS SUMMARY | 2024-09-17 10:52 | XMS_ITS | Continuity of Care Document ---
Author Organization [facility] Address [address] [place] [address] [place] [address] Phone Care Team Providers Care Rotary Saw Operator Name Role Phone Paige OD, Ramon Unavailable Unavailable Procedures Procedure Date Office/outpatient Visit, Est Eye Exam & Treatment Refraction Advance Directives Directive Yes / No Effective Date File Name No Information Encounters Encounter Description Practice Location Reason(s) For Visit Diagnoses Date Provider Providers Copied on Encounter Office/outpat ient Visit, Est [facility], [address] [place] [address] [address], [place], [place], [id number], tel:[phone] [facility] No Information 6-200 8 Paige OD Ramon. [address], [place], [place], [facility], [place]. tel:[phone] [facility], [address] [place] [address] [address], [place], [place], [id number], tel:[phone] [facility] No Information 8-200 8 Paige OD Ramon. [address] , [address], [place], [address], [place]. tel:[phone] Family History Family Member Type Diagnosis Age At Onset No Information Payers Payer name Insurance type Covered constitution party ID Authoriza tion(s) No Information Social History Type Description Quantity Date Captured Comments Sex Female Smoking Status No Information Chief Complaint And Reason For Visit No Information Reason For Referral Reason For Referral No Information History Of Present Illness Encounter Date Complaint History Of Prese nt Illness No Information Functional Status Date Functional Assessmen t No Information Instructions Date Instruction Additional Infor mation No Information Assessments Type Assessment Date No Information Patient Care Teams Name Effective Dates (start - stop) Status Members No Information
--- OUTSIDE RECORDS SUMMARY | 2024-09-17 10:52 | XMS_ITS | Encounter Summary ---
Author Organization [facility] - [facility] Address [facility] [place] [address] Care Team Providers Care Hired Hand Name Role Phone Aminah Hubbard MD Primary Care Provider [phone] Je Sellers MD Unavailable Encounter Details Date Type Department Care Team (Latest Contact Info) Description 04/24/2024 Conversion Logic Message Enc [facility] Medical Group Multispecialty Care - [place] [address] [address] [place] [address] [place] [address] [place] [address] [address] [place] [address] Can't reach your office. Social History Tobacco Use Types Packs/Day Years Used Date Smoking Tobacco: Former Cigarettes 1 30 1 977 - 2007 Passive Smoke Exposure: Never Smokeless Tobacco: Never Comments:counseled by Dr Frannie klein Alcohol Use Standard Drinks/Week Comments Yes 0 (1 standard drink = 0.6 oz pur e alcohol) 2-3 per year AUDIT-C Answer Date Recorded Q1: How often do you have a drink containing alc ohol? Monthly or less 04/06/2024 Q2: How many drinks containi ng alcohol do you have on a typical day when you are drinking? 1 or 2 04/06/2024 Q3: How often do you have si x or more drinks on one occasion? Never 04/06/2024 PHQ-2 Answer Date Recorded Patient Health Questionnaire-2 Score 2 04/08/2024 Comments No Sex and Gender Information Value Date Recorded Sex Assigned at Not on file Legal Sex Female 3:06 PM CDT Gender Identity Not on file Sexual Orientation Not on file documented as of this encounter Plan of Treatment Upcoming Encounters Date Type Department Care Team (Late st Contact Info) Description 10/09/2024 10:00 AM CDT Office Visit [address] [place] [address] Aminah Hubbard MD [address] [place] [address] 04/21/2025 10:30 AM SHOP TAILOR Office Visit [address] [address] Aminah Hubbard MD [address] [place] [address] documented as of this encounter Visit Diagnoses Not on filedocumented in this encounter Additional Health Concerns Assessment Noted Time PHQ-9 Depression Total Score: 5 04/08/20 24 11:54 AM SHOP TAILOR documented as of this encounter Care Teams Hired Hand Relationship Specialty Start Date End Date Aminah Hubbard MD [address] [place] [address] PCP - General INTERNAL MEDICINE 08/28/21 Je Sellers MD [address] [place] [address] [address] [place] [address] Referring Physician OPHTHALMOLOGY 11/22/21 documented as of this encounter
--- OUTSIDE RECORDS SUMMARY | 2024-09-17 10:52 | XMS_ITS | Encounter Summary ---
Author Organization [facility] - [facility] Address [address] [place] [address] Care Team Providers Care Briquette Machine Operator Name Role Phone Aminah Hubbard MD Primary Care Provider [phone] Ramon Miller MD Unavailable [phone] Je Sellers MD Unavailable Elma Vila MD Unavailable [phone] Encounter Details Date Type Department Care Team (Late st Contact Info) Description 04/16/2022 Engine Ecology Message Enc [facility] - [address] [place] [address] Pa[place], [facility] Provider MRI result Social History Tobacco Use Types Packs/Day Years Used Date Smoking Tobacco: Former Cigarettes 1 30 1 977 - 2007 Smokeless Tobacco: Never Comments:counseled by Dr Frannie klein Alcohol Use Standard Drinks/Week Comments Yes 0 (1 standard drink = 0.6 oz pur e alcohol) 2-3 per year PHQ-2 Answer Date Recorded PHQ-2 Score - If the patient scores above 3, please move on to questions 3-9 1 02/12/2022 Comments No Sex and Gender Information Value Date Recorded Sex Assigned at Not on file Legal Sex Female 3:06 PM CDT Gender Identity Not on file Sexual Orientation Not on file COVID-19 Exposure Response Date Recorded In the last 10 days, have yo u been in contact with someone who was confirmed or suspected to have Coronavirus/COVID-19? Unable to assess 04/13/2022 10: 50 AM RADIOGRAPHER documented as of this encounter Plan of Treatment Upcoming Encounters Date Type Department Care Team (Late st Contact Info) Description 10/09/2024 10:00 AM CDT Office Visit [facility] - [address] [place] [address] Aminah Hubbard MD [address] [address] 04/21/2025 10:30 AM RADIOGRAPHER [facility] [address] [place] [address] Aminah Hubbard MD [address] [place] [address] documented as of this encounter Visit Diagnoses Not on filedocumented in this encounter Additional Health Concerns Assessment Noted Time PHQ-9 Depression Total Score: 4 11/23/19 22 1:25 PM CDT documented as of this encounter Care Teams Briquette Machine Operator Relationship Specialty Start Date End Date Aminah Hubbard MD [address] [place] [address] PCP - General INTERNAL MEDICINE 08/28/21 Ramon Miller MD [address] [facility] [address] [place] [address] GASTROENTEROLOGY 11/22/21 02/12/23 Je Sellers MD [address] [facility] [address] [place] [address] Referring Physician OPHTHALMOLOGY 11/22/21 Elma Vila MD [facility] [address] [place] [address] Consulting Physician ANESTHESIOLOGY PAIN MEDICINE 04/08/24 04/08/24 documented as of this encounter
--- OUTSIDE RECORDS SUMMARY | 2024-09-17 10:52 | XMS_ITS | Encounter Summary ---
Author Organization [facility] - [facility] Address [address] [place] [address] Care Team Providers Care Life Advisor Name Role Phone Aminah Hubbard MD Primary Care Provider [phone] Ramon Miller MD Unavailable Je Sellers MD Unavailable Elma Vila MD Unavailable [phone] Encounter Details Date Type Department Care Team (Late st Contact Info) Description 12/29/2021 Hövding Message Enc [facility] Multispecialty Care - [address] [place] [address] [email or web address], [facility] Provider mammogram results Social History Tobacco Use Types Packs/Day [...] please move on to questions 3-9 1 11/22/2021 Comments No Sex and Gender Information Value Date Recorded Sex Assigned at Not on file Legal Sex Female 3:06 PM CDT Gender Identity Not on file Sexual Orientation Not on file COVID-19 Exposure Response Date Recorded In the last 10 days, have yo u been in contact with someone who was confirmed or suspected to have Coronavirus/COVID-19? No / Unsure 12/27/2021 12:54 PM CDT documented as of this encounter Plan of Treatment Upcoming Encounters Date Type Department Care Team (Late st Contact Info) Description 10/09/2024 10:00 AM CDT Office Visit [facility] Multispecialty [facility] [address] [address] [place] [address] Aminah Hubbard MD [address] [address] 04/21/2025 10:30 AM WELFARE SPECIALIST [facility] [address] [place] [address] Aminah Hubbard MD Pending [facility] to [facility] [address] [address] documented as of this encounter Visit Diagnoses Not on filedocumented in this encounter Additional Health Concerns Assessment Noted Time PHQ-9 Depression Total Score: 4 11/23/19 22 1:25 PM CDT documented as of this encounter Care Teams Life Advisor Relationship Specialty Start Date End Date Aminah Hubbard MD [address] [place] [address] PCP - General INTERNAL MEDICINE 08/28/21 Ramon Miller MD [address] [facility] [address] [place] [address] GASTROENTEROLOGY 11/22/21 02/12/23 Je Sellers MD [address] [facility] [address] [place] [address] Referring Physician OPHTHALMOLOGY 11/22/21 Elma Vila MD [facility] [address] [place] [address] Consulting Physician ANESTHESIOLOGY PAIN MEDICINE 04/08/24 04/08/24 documented as of this encounter
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
== END 2024-09-17 10:13 | disposition home or self-care (01) ==
PROVIDERS: PCP Internal Medicine; Visit Provider Internal Medicine
DX: Z12.31 Encounter for screening mammogram for malignant neoplasm of breast (principal)
CPT/HCPCS: 77063; 77067

== ENCOUNTER 2024-11-12 14:58 | Outpatient (CLI) | payer MEDICARE, SELFPAY ==
--- NOTE | ~2024-11-12 | DEXA_ITS ---
Bone Density Report Name: OSMIN MACIAS Age: 69 Sex: Female Ethnicity: White Date of : 1955 Indication: postmenopausal; screening for osteoporosis; height loss; Referring Provider: JUAN DIEGO, CURTIS Study: Bone densitometry was performed. Exam Date: November 12, 2024 Accession number: [id number] Bone Density: Region BMD T-score Z-score Classification AP Spine(L1, L3, L4) 0.943 -1.0 1.1 Normal Femoral Neck (Left) 0.533 -2.9 -1.1 Osteoporosis Total Hip (Left) 0.691 -2.1 -0.6 Osteopenia Femoral Neck (Right) 0.564 -2.6 -0.8 Osteoporosis Total Hip (Right) 0.692 -2.1 -0.6 Osteopenia Total Hip Mean 0.691 -2.1 -0.6 Osteopenia World Health Organization criteria for BMD impression classify patients as: Normal (T-score at or above -1.0), Osteopenia (T-score between -1.0 and -2.5), or Osteoporosis (T-score at or below -2.5). 10-year Fracture Risk: FRAX not reported because: Some T-score for Spine Total or Hip Total or Femoral Neck at or below -2.5 Clinical Information Provided by Patient: Has used the following medications: Vitamin D, Calcium Patient maximum height was 62 Menopause Age: 45 No regular weight bearing exercise Drinks caffeinated beverages Onset of menses at age 13 Number of children 1 Impression: The patient has osteoporosis, based on the Left Femoral Neck T-score. Discussion: INCREASED RISK OF FRACTURE. BONE DENSITY IS UNDESIRABLY LOW AT ONE OR MORE SKELETAL SITES, CONSISTENT WITH POSTMENOPAUSAL OSTEOPOROSIS. This patient's lowest T-score meets the World Health Organization's (WHO) criteria for osteoporosis at one or more sites (T-score -2.5 or below). In untreated patients, the risk of osteoporotic fracture increases approximately two-fold for each 1.0 SD decrease in T-score. Low bone density is not the only risk factor for fracture; also consider factors such as patient's age, frailty or poor health, risk of falling, risk of injury, previous osteoporotic fracture, family history of osteoporosis, cigarette smoking, low body weight, etc. Not everyone with low bone mineral density has osteoporosis; osteomalacia and other metabolic bone disorders should also be considered. Patients who have osteoporosis should be evaluated for specific diseases and conditions (secondary causes) that may cause or contribute to bone loss. The [place] Association of Clinical Endocrinologists (AACE) and National Osteoporosis Foundation (NOF) recommend pharmacologic intervention for all postmenopausal women whose T-score is in this range. The patient should follow a healthful lifestyle (good nutrition with adequate calcium and vitamin D, and appropriate weight-bearing exercise). Follow-Up: Consider a repeat BMD and Vertebral Fracture Assessment (VFA) exam in 2 years or sooner if medically necessary, to reassess this patient's status. Reported by: MICHAEL on 11/12/2024 3:38:00 PM. Reviewed, dictated and finalized at location A.
--- OUTSIDE RECORDS SUMMARY | 2024-11-12 15:36 | XMS_ITS | Continuity of Care Document ---
Author Organization [facility] Address [address] [place] [address] [place] [address] Phone Care Team Providers Care Rocket Assembly Operator Name Role Phone Paige OD, Ramon Unavailable Unavailable Procedures Procedure Date Office/outpatient Visit, Est Eye Exam & Treatment Refraction Advance Directives Directive Yes / No Effective Date File Name No Information Encounters Encounter Description Practice Location Reason(s) For Visit Diagnoses Date Provider Providers Copied on Encounter Office/outpat ient Visit, Est [facility], [address] [place] [address] [address], [place], [place], [id number], tel:[phone] [facility] No Information 6-200 8 Paige OD Ramon. [address], [place], [place], [facility], [place]. tel:[phone] [facility], [address] [place] [address] [address], [place], [place], [id number], tel:[phone] [facility] No Information 8-200 8 Paige OD Ramon. [address] , [address], [place], [address], [place]. tel:[phone] Family History Family Member Type Diagnosis Age At Onset No Information Payers Payer name Insurance type Covered green party ID Authoriza tion(s) No Information Social [...]
== END 2024-11-12 14:59 | disposition home or self-care (01) ==
LOC: ANHIMG 15:00
PROVIDERS: PCP Internal Medicine; Visit Provider Internal Medicine
DX: M80.08XA Age-related osteoporosis with current pathological fracture, vertebra(e), initial encounter for fracture (principal); M80.80XA Other osteoporosis with current pathological fracture, unspecified site, initial encounter for fracture; M85.852 Other specified disorders of bone density and structure, left thigh; M85.851 Other specified disorders of bone density and structure, right thigh
CPT/HCPCS: 77080

== ENCOUNTER 2024-11-26 11:31 | Outpatient (CLI) | payer MEDICARE, SELFPAY ==
--- NOTE | ~2024-11-26 | US_ITS ---
EXAM: ABDOMEN ULTRASOUND HISTORY: elevated liver enzymes COMPARISON: Reference is made to a CT examination of the abdomen and pelvis dated 05/24/2020 FINDINGS: LIVER: The liver is unremarkable in echogenicity and size. The contour of the liver surface is smooth. The portal vein is patent, demonstrating hepatopedal flow. GALLBLADDER: Surgically absent. BILE DUCTS: Common bile duct measures 3.7mm. PANCREAS: Limited evaluation of the pancreas secondary to overlying bowel gas IMPRESSION: Limited evaluation of the pancreas secondary to overlying bowel gas. Otherwise, unremarkable ultrasound examination of the right upper quadrant, as detailed above. Reviewed, dictated and finalized at location A.
== END 2024-11-26 11:32 | disposition home or self-care (01) ==
LOC: MICIMG 11:37
PROVIDERS: PCP Internal Medicine; Visit Provider Internal Medicine
DX: R74.8 Abnormal levels of other serum enzymes (principal)
CPT/HCPCS: 76705